=== PATIENT | female | born 1995 | race African-American/Black ===

== ENCOUNTER 2024-08-10 03:19 | Emergency (ER) | payer OTHER ==
[~2024-08-10] VITALS: Ht 172.7 cm; Wt 72.0 kg
[2024-08-10 03:22] VITALS: BP 129/96; TEMP 98.2; O2SAT 99
[2024-08-10 03:26] VITALS: PULSE 71; RESP 19; O2SAT 100
== END 2024-08-10 06:01 | disposition left against medical advice (07) ==
LOC: ER 03:46
DX: R07.9 Chest pain, unspecified (principal); Z53.21 Procedure and treatment not carried out due to patient leaving prior to being seen by health care provider

== ENCOUNTER 2025-04-07 21:07 | Emergency (ER) | payer SELFPAY ==
[~2025-04-07] VITALS: Ht 172.7 cm; Wt 73.2 kg
[2025-04-07 21:08] VITALS: O2SAT 98
[2025-04-07] MEDS ORDERED: ERYT1OIN6 EACHEYE (21:34)
[2025-04-07 22:05] VITALS: BP 141/93; PULSE 99; RESP 18; TEMP 37.1; O2SAT 100
== END 2025-04-07 22:06 | disposition home or self-care (01) ==
LOC: ER 21:07
DX: H10.89 Other conjunctivitis (principal)
CPT/HCPCS: 99283